=== PATIENT | male | born 1975 | race Caucasian/White ===

== ENCOUNTER 2017-04-22 17:54 | Emergency (ER) | payer SELFPAY ==
[~2017-04-22] VITALS: Ht 177.8 cm; Wt 77.1 kg
[2017-04-22 17:55] VITALS: BP_SYST 136
--- NOTE | 2017-04-22 17:55 | NUR ---
Patient was brought in by JAZZMINE for ok to book. Patient to ER regan 1 to gown for evaluation. Side rails up. Assumed care of pt.
--- NOTE | 2017-04-22 17:58 | NUR ---
ER Dr. Chowdary at bedside examining patient.
--- NOTE | 2017-04-22 18:05 | NUR ---
Patient discharged into custody of [facility]. Patient given written and verbal discharge instructions and verbalizes understanding. ER MD discussed with patient the results and treatment provided. Patient in stable condition. Patient did not have a ID band at time of discharge. Patient educated on pain management and to follow up with PMD. Pain Scale 3/10. Opportunity for questions provided and answered. Patient trans via squad car to [facility].
== END 2017-04-22 18:05 ==
LOC: SED 17:54
DX: Z02.89 Encounter for other administrative examinations (principal); R03.0 Elevated blood-pressure reading, without diagnosis of hypertension; M79.671 Pain in right foot; M79.672 Pain in left foot; M10.9 Gout, unspecified
CPT/HCPCS: 99283